=== PATIENT | male | born 1950 | race Caucasian/White ===

== ENCOUNTER → 2016-12-12 | Outpatient (CLI) | payer MEDICARE, OTHER | LOC: LAB 08:57 | PROVIDERS: ATTEND Specialist | DX: N28.1 Cyst of kidney, acquired (principal); R31.29 Other microscopic hematuria; R97.20 Elevated prostate specific antigen [PSA] | CPT/HCPCS: 36415; 82565; 84520; G0103; 84153 ==

== ENCOUNTER → 2016-12-22 | Outpatient (CLI) | payer MEDICARE, OTHER | LOC: RAD 12-19 06:38 | PROVIDERS: ATTEND Specialist | DX: R31.29 Other microscopic hematuria (principal); N28.1 Cyst of kidney, acquired | CPT/HCPCS: 74178; Q9967 ==

== ENCOUNTER → 2017-02-04 | Outpatient (REF) | payer MEDICARE, OTHER ==
[~2017-02-04] MED LIST: ATN25T PO; HYDR50TA3 PO; NF-LISIN40 PO
== END ==
LOC: LAB 17:18
PROVIDERS: ATTEND Family Medicine
DX: M01.X22 Direct infection of left elbow in infectious and parasitic diseases classified elsewhere (principal)
CPT/HCPCS: 87070; 87075; 87147

== ENCOUNTER → 2017-03-04 | Outpatient (CLI) | payer MEDICARE, OTHER | LOC: LAB 16:07 | DX: I71.4 Abdominal aortic aneurysm, without rupture (principal) | CPT/HCPCS: 36415; 82565; 84520 ==

== ENCOUNTER → 2017-03-06 | Outpatient (CLI) | payer MEDICARE, OTHER ==
--- NOTE | 2017-03-06 10:30 | Diagnostic Imaging Report ---
PROCEDURE: CT angiography of the abdomen and pelvis with and without contrast. TECHNIQUE: Multiple contiguous axial images were obtained through the abdomen and pelvis after administration of intravenous contrast. Precontrast acquisitions were also performed. MIP reconstruction CTA acquisitions were acquired through the aorta. INDICATION: Abdominal aortic aneurysm. COMPARISON: 12/22/2016, 06/13/2016. FINDINGS: The liver shows innumerable masses which have features of cysts. Bilateral renal cysts are present. The dominant cyst is at the posterior aspect of the left kidney and measures similar to the comparison exams. It has thin septations which are similar to the prior exam. It does not have any intracystic nodule or worrisome feature. The spleen is negative. The pancreas shows a few scattered calcifications which suggest chronic pancreatitis. There is no pancreatic mass or ductal dilatation demonstrated. There are no pathologically enlarged lymph nodes. Images through the pelvis show the prostate gland to be enlarged. The urinary bladder is unremarkable. An aneurysm of the abdominal aorta at the level of the origins of the renal arteries is present with a maximum AP dimension of 3.1 cm, unchanged from 12/22/2016 and 06/13/2016. Nearly circumferential thrombus is seen in this area of ectasia. A fusiform infrarenal abdominal aortic aneurysm is present. This has a maximum AP dimension of 4.8 cm and a transverse dimension of 4.8 cm. Measuring in the same plane, it does not show any significant change from 12/22/2016. When measured in the same plane from 06/13/2016, the measurements are 4.5 in AP dimension and 4.6 cm in transverse dimension. It has slightly increased in size since that time. 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 The aneurysm does have nearly circumferential thrombus which is similar to the prior study. Between the distal abdominal aortic aneurysm and the area of ectasia proximally, atheromatous irregularity consisting of soft and hard plaque is present. 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 The superior mesenteric artery does not show any significant stenosis. A solitary main right renal artery is present without significant stenosis. It does have early branching. There is an accessory left renal artery which has a mild stenosis at its origin. The main left renal artery more superiorly located does not have any stenosis. The left common iliac artery is 1.1 cm. The right common iliac artery is 1.4 cm. IMPRESSION: 1. The fusiform infrarenal abdominal aortic aneurysm shows a slight increase in size since 06/13/2016. The current AP and transverse measurements are 4.8 x 4.8 cm. 2. Additional focal ectasia of the proximal abdominal aorta at the level of the renal arteries with an AP dimension of 3.1 cm. 3. 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 4. Multiple hepatic cysts. 5. Multiple bilateral renal cysts with a Bosniak 2 left renal cyst. 5. There are a few pancreatic calcifications suggesting chronic pancreatitis. Dictated by: Dictated on workstation # [id number]
== END ==
LOC: RAD 08:47
DX: I71.4 Abdominal aortic aneurysm, without rupture (principal); K76.89 Other specified diseases of liver; N28.1 Cyst of kidney, acquired; K86.89 Other specified diseases of pancreas
CPT/HCPCS: 74174; Q9967